=== PATIENT | female | born 1985 | race Caucasian/White ===

== ENCOUNTER 2016-10-27 20:49 | Emergency (ER) | payer OTHER ==
[~2016-10-27] VITALS: Ht 177.8 cm; Wt 59.0 kg
[~2016-10-27 20:49] MED LIST: CIPR500T4 PO; PHEN1TAB49 PO
[2016-10-27 20:56] VITALS: BP 133/81; PULSE 76; RESP 16; TEMP 98.1; O2SAT 99
[2016-10-27] MEDS ORDERED: ORPHENADRINE INJ 60 MG/2 ML AMP IM ONE (21:30)
[2016-10-27] MEDS ORDERED: KETOROLAC TROMETHAMINE 60 MG/2 ML (IM) VIAL IM ONE (21:30)
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
[2016-10-27] MEDS ORDERED: BACL10TA PO (21:40)
[2016-10-27] MEDS ORDERED: IBUP800T23 PO (21:40)
== END 2016-10-27 22:07 | disposition home or self-care (01) ==
LOC: NEPB 20:49
DX: S16.1XXA Strain of muscle, fascia and tendon at neck level, initial encounter (principal); S39.012A Strain of muscle, fascia and tendon of lower back, initial encounter; V49.50XA Passenger injured in collision with unspecified motor vehicles in traffic accident, initial encounter; Y92.488 Other paved roadways as the place of occurrence of the external cause
CPT/HCPCS: 96372; 99283; J1885; J2360; L0150